=== PATIENT | male | born 1945 | race Hispanic/Latino ===

== ENCOUNTER → 2024-08-16 | Outpatient (CLI) | payer OTHER ==
--- NOTE | 2024-08-17 15:35 | HMCSR ---
APPROVED REPORT EXAM: Two-dimensional and M-mode echocardiogram with Doppler and color Doppler. INDICATION ICD: R94.31 Abnormal electrocardiogram 2D Dimensions RVDd3.7 cmLVEF(%)67.6 (>50%)LVED Vol(simp.)111.2 mL IVSd0.7 (0.7-1.1cm)FS(%)37 %LVES Vol(simp.)51.4 mL LVDd4.5 (3.8-5.6cm)LA (2D)4.7 (1.6-4.0cm)LVEF(%, simp.)54 % PWd1.3 (0.7-1.1cm)LVOT diam2.5 (1.8-2.4cm)LA ESV INDEX (BP)24.57 mL/m2 IVSs1.2 cmIVC diam2.3 cm LVDs2.8 (2.5-4.0cm) PWs1.4 cm M-Mode Dimensions EPSS0.2 cm LA (MM)5.5 (1.6-4.0cm) Ao Root(MM)3.2 (2.0-3.7cm) Aortic Valve AoV Vmax1.2 m/Federico Peak GR5.4 mmHgLVOT Vmax0.8 m/s AoV VTI0.3 mAo Mean GR2.6 mmHgLVOT VTI0.20 m ISABELLA (VMAX)3.9 cm2AVA (VTI) 3.9 cm2 Mitral Valve MV E Vmax66.8 cm/sDECEL Qlyv275 ms MV A Vmax71.1 cm/sP 1/2 T62 ms E/A ratio0.9MVA (PHT)3.5 cm2 TDI E/E' Medial9.5E/E' Lateral9.5 Medial E' Peak V7.00 cm/sLateral E' Peak V7.00 cm/s Pulmonary Valve PV Vmax1.6 m/s Tricuspid Valve TR Vmax1.5 m/sRAP (EST) 8 [id number] mmHg TR Peak GR8.5 mmHg Left Ventricle The left ventricle is normal size. There is normal left ventricular wall thickness. LVEF is 55-60%. T he left ventricular diastolic function is normal. Right Ventricle The right ventricle is normal size. The right ventricular systolic function is normal. Atria The left atrium size is normal. The right atrium size is normal. Aortic Valve The aortic valve is normal in structure. No aortic regurgitation is present. There is no aortic valvu lar stenosis. Mitral Valve The mitral valve is normal in structure. There is mitral valve regurgitation noted. There is no beti l valve stenosis. Tricuspid Valve The tricuspid valve is normal in structure. There is trace of tricuspid valve regurgitation noted. Pulmonic Valve The pulmonary valve is normal in structure. There is no pulmonic valvular regurgitation. Great Vessels The aortic root is normal in size. IVC is dilated and collapses <50% with inspiration. Pericardium There is trivial pericardial effusion. Other Information Quality : Adequate Conclusion The left ventricle is normal size. LVEF is 55-60%. There is mitral valve regurgitation noted.
== END | disposition home or self-care (01) ==
LOC: RAH 14:11
PROVIDERS: ATTEND Internal Medicine Cardiovascular Disease
DX: I34.0 Nonrheumatic mitral (valve) insufficiency (principal); R94.31 Abnormal electrocardiogram [ECG] [EKG]
CPT/HCPCS: 93306